=== PATIENT | male | born 1990 | race Caucasian/White ===

== ENCOUNTER 2020-08-14 16:10 | Emergency (ER) | payer MEDICAID ==
[~2020-08-14] VITALS: Ht 188 cm; Wt 77.0 kg
[2020-08-14] MEDS ORDERED: ACETAMINOPHEN 325MG TABLET PO STA (18:39)
[2020-08-14] MEDS ORDERED: TETANUS, DIPHTHERIA, PERTUSSIS VAC/PF 0.5ML (>7YR OLD) IM ONE (18:45)
[2020-08-15 02:07] VITALS: BP 132/87
== END 2020-08-15 02:16 ==
LOC: ER 16:10
DX: S00.83XA Contusion of other part of head, initial encounter (principal); F20.9 Schizophrenia, unspecified; G40.909 Epilepsy, unspecified, not intractable, without status epilepticus; Y04.0XXA Assault by unarmed brawl or fight, initial encounter; Y93.89 Activity, other specified; Y92.214 College as the place of occurrence of the external cause; Y99.8 Other external cause status
CPT/HCPCS: 70450; 90471; 90715; 99284; Z7610